=== PATIENT | female | born 1960 | race Caucasian/White ===

== ENCOUNTER → 2016-08-18 | Outpatient (CLI) | payer OTHER ==
[~2016-08-18] MED LIST: AMITIZA24 MCG PO; ASA CHILDREN'S81 MG PO; ATARAX-DPS25 MG PO; CLARITIN DPS10 MG PO; DILAUDID2 MG PO; LITHIUM CARBON150 MG PO; MELATONIN10 M2 PO; MONTELUKAST SOD10 MG PO; PHYTONADIONE PO; PRIMROSE OIL PO; PROTONIX40 MG PO; TOPAMAX15 MG PO; VITAMIN D31000 UNIT PO; [UNRECOGNIZED DRUG - OTHER] PO
== END | disposition home or self-care (01) ==
LOC: RAD.S 12:00
DX: R13.13 Dysphagia, pharyngeal phase (principal)

== ENCOUNTER 2016-08-25 09:59 | Observation (INO) | payer OTHER ==
[~2016-08-25] VITALS: Ht 157.5 cm; Wt 61.2 kg
--- NOTE | ~2016-08-25 | CST ---
Cardiac Perfusion Imaging Demographics Patient Name NATHAN Farias Gender Female Patient Number [id number] Race Visit Number [id number] Ethnicity [employer] ID Room Number 422 Accession Number [id number] Height 62 inches Date of 1960 Weight 135 pounds Age 56 year(s) BSA 1.62 m Referring Physician Juan Almazan MD BMI 24.69 kg/m Interpreting [facility] Date of study 08/26/2016 Physician Kt Baires MD Supervising MD/MLP Kt Baires MD NM Technologist Abdullahi Dickerson, [facility] Ordering Physician Juan Almazan MD Stress Shweta Soria customer data technician Stress ECG Reading [facility] Nurse Tom Hendricksony Physician Kt Baires MD The procedure was explained in detail to the patient. Risks, complications and alternative treatments were reviewed. Written consent was obtained. Medications Reviewed with Patient prior to Procedure. Procedure Procedure Type: Nuclear Stress Test:Pharmacological, Lexiscan Procedure Start time: 08/26/2016 08:00 Indications: Hyperlipidemia, Hypertension and Chest pain. Risk Factors The patient risk factors include:Current/Recent(w/in 1 year) tobacco use, treated hypercholesterolemia, treated hypertension and family history of premature CAD. Conclusions Summary Perfusion Images: The overall quality of the study is good. Left ventricular cavity is noted to be normal on the stress and rest studies. There is no evidence of abnormal lung activity. The right ventricle is not visualized and cannot be assessed. Stress SPECT images demonstrate homogenous tracer distribution throughout the myocardium. Rest SPECT images demonstrate homogenous tracer distribution throughout the myocardium. Gated SPECT imaging reveals normal myocardial thickening and wall motion. The left ventricular ejection fraction was calculated to be 76%. Impression ECG portion of stress test is clinically negative for ischemia by diagnostic criteria. Myocardial perfusion imaging is normal. Overall left ventricular systolic function was normal without regional wall motion abnormalities. There are no previous studies for comparison. Stress Protocols Resting ECG Normal sinus rhythm. Resting HR:60 bpm Resting BP:98/72 mmHg Stress Protocol:Pharmacologic Predicted HR: 162 bpm Test duration: 06:00 min ECG Findings No ECG changes suggestive of ischemia. Arrhythmias No rhythm abnormality. Symptoms Shortness of breath. Chest pressure 2/10 at 2 minutes post infusion Complications Procedure complication: None. Stress Interpretation Appropriate hemodynamic response to Lexiscan. No significant ST-T wave changes with Lexiscan. ECG portion is negative for ischemia by diagnostic criteria. Imaging Results Summed scores - Summed stress score: 0 - Summed rest score: 0 - Summed difference score: 0 Stress ejection Ejection fraction:75 % EDV :73 ml ESV :18 ml Stroke volume :55 ml LV mass :107 gr Imaging Protocols Rest Stress Isotope:Tc99m Myoview IV Isotope: Tc99m Myoview IV Isotope dose:10.5 mCi Isotope dose:30.5 mCi Date:08/26/2016 06:45 Date:08/26/2016 08:00 Technique: SPECT Technique: Gated Supine SPECT Supine IV remains in place after procedure. Scan Time:30 minutes post injection Scan Time:15-30 minutes post injection Procedure Medications - Regadenoson (Lexiscan) 0.4 mg IV over 10-15 sec. I.V. 0.4 mg. Medications administered per verbal order and read back to physician prior to administration. Medical History Admission Data Admission date: 08/25/2016 Admission Time: 12:00 Hospital Status: Inpatient. Signatures
[~2016-08-25 09:59] MED LIST changes: -AMITIZA24 MCG PO; -LITHIUM CARBON150 MG PO; -PROTONIX40 MG PO
--- NOTE | 2016-08-26 08:23 | HP ---
ADMIT: 08/25/2016 RM/LOC: 422 [facility] MR#: [id number] [address] [address] LUPE EVANS [address] [place] [address] History and Physical SEX: F AGE: 56 : 1960 DATE OF SERVICE: CHIEF COMPLAINT: Chest pain. HISTORY OF PRESENT ILLNESS: The patient is a 56-year-old female, who presented to the emergency room after being first evaluated at Neurosurgery office for routine appointment. Has chest pain, substernal, radiating up to her left jaw and neck starting last night. The patient has not had any pain similar recently, has otherwise been active, but somewhat limited by some left hip pain following a cervical neck surgery. The patient reports that she has no shortness of breath. No nausea or vomiting. Had felt a little bit of confusion yesterday when conversing with family via text. Otherwise, had been in her usual state of health taking her medications as prescribed other than occasionally missing some Topamax dosages. Struggle with some headaches occasionally. PAST MEDICAL HISTORY: 1. Bipolar disorder. 2. Hyperlipidemia. 3. Hypertension. 4. History of cervical spinal stenosis, status post surgery. 5. Anxiety. 6. Chronic headaches. MEDICATIONS: She is on: 1. Alprazolam. 2. Vitamin D3. 3. Gabapentin. 4. Dilaudid p.r.n. 5. Loratadine. 6. Amitiza. 7. Montelukast. 8. Topamax. 9. Aspirin 81 mg a day. Please see list for full details. FAMILY HISTORY: Her father of heart disease at age 61. Her multiple uncles and aunts have of heart disease at early age in their 40s. SOCIAL HISTORY: Smoking. Lives at home with her son. REVIEW OF SYSTEMS: As per HPI. Otherwise, fully reviewed and negative. PHYSICAL EXAMINATION: VITAL SIGNS: Blood pressure 108/60, pulse 80, respiratory rate 17, O2 saturation 96% on room air. GENERAL: She is alert and oriented x3. In no acute distress. Pleasant as always. HEENT: Normocephalic, atraumatic. Pupils are equal, round, and reactive to light and accommodation. Extraocular muscles intact. Moist mucous membranes. ADMIT: 08/25/2016 RM/LOC: 422 [facility] MR#: [id number] [address] [address] LUPE EVANS K [address] [place] [address] History and Physical SEX: F AGE: 56 : 1960 NECK: No lymphadenopathy. Soft, supple. Trachea midline. LUNGS: Clear to auscultation bilaterally. No wheezes, rales, or rhonchi. HEART: Regular rate and rhythm. No murmurs, rubs, or gallops. ABDOMEN: Soft, nontender, nondistended. Bowel sounds present. EXTREMITIES: No cyanosis, clubbing, or edema. MUSCULOSKELETAL: Has 5/5 strength in all four extremities. NEUROLOGICAL: No focal deficits noted. Cranial nerves II through XII grossly intact. LABORATORY AND X-RAY DATA: Her CK-MB is slightly elevated at 4.7, CK is 239. Mag is 2.4. Troponin is negative. Hemoglobin 15.3. Potassium 3.9, creatinine 1.0. EKG is reviewed. I do not see any acute findings. Sinus rhythm. Chest x-ray is negative. ASSESSMENT: 1. Chest pain. 2. Hypertension. 3. Hyperlipidemia. 4. Bipolar disorder. 5. Chronic headaches. PLAN: At this point in time, for her chest pain, we will trend her out with her cardiac enzymes. Her MB is slightly positive. Concerning symptoms of her pain radiating to her left jaw. She does have a history of a catheterization in May, and has a report of that, the ER has obtained. Shows a normal LV with normal systolic function, mild CAD with maximal focal stenosis, 20% to 30%, involving the PDA, branch of RCA. Otherwise, no other acute findings there at that time. Plan is we will evaluate her overnight with serial cardiac enzymes. Plan on tentatively stress test in the morning if everything looks okay. The patient is agreeable with plan. Keshav Martinez MD/ ramon JOB #: [id number] CC: Keshav Martinez, Attending Physician Keshav Martinez, Family Physician
--- NOTE | 2016-08-27 10:58 | DS ---
ADMIT: 08/25/2016 RM/LOC: 422 [facility] MR#: [id number] [address] [address] LUPE EVANS [address] [place] [address] Discharge Summary SEX: F AGE: 56 : 1960 ADMISSION DATE: 08/25/2016 DISCHARGE DATE: 08/26/2016 CONSULTATIONS: None. FINAL DIAGNOSES: 1. Chest pain with a negative cardiac stress test during hospitalization. 2. Hypertension. 3. Bipolar disorder. 4. Chronic neck pain from neck fusion. 5. Migraines. 6. Chronic constipation. REASON FOR ADMISSION: The patient is a 56-year-old female with chest pain radiating to her left neck and jaw, concerning for angina. Strong family history. Admitted for further stabilization, monitoring and ultimately had the above-mentioned stress test. HOSPITAL COURSE: The patient was admitted. Cardiac enzymes remained negative. Stress test negative. She had improvement of her pain. We will discharge her on PPI with close followup in the clinic in 2-4 weeks. Please see discharge med list which I reviewed. Keshav Martinez MD/ vdg JOB #: [id number] CC: Keshav Martinez MD, Attending Physician Keshav Martinez MD, Family Physician
[2016-08-27] MEDS ORDERED: LITHIUM CARBON150 MG PO (13:21)
[2016-08-27] MEDS ORDERED: AMITIZA24 MCG PO (13:23)
[2016-08-27] MEDS ORDERED: PROTONIX40 MG PO (13:24)
--- NOTE | 2016-09-12 08:09 | ER ---
ADMIT: 08/25/2016 RM/LOC: ER [facility] MR#: [id number] [address] [facility] [id number] [place], [place] [address] LUPE EVANS [address] [place] [address] Emergency Room Report SEX: F AGE: 56 : 1960 DATE: 08/25/2016 ADDENDUM: This 56-year-old white female coming with chest pain, radiated between her neck and left arm. First nitroglycerin helped, second may be not so much. EKG, chest x-ray, CBC, chemistry, and troponin negative. Put an inch of paste on her. Anyway, I spoke to Dr. Martinez, who will admit, rule out. CONDITION ADMISSION: Fair. Reg Arnold MD/ ramon JOB #: [id number] CC: Reg Arnold MD, Attending Physician Keshav Martinez MD, Family Physician
== END 2016-08-26 13:43 | disposition home or self-care (01) ==
LOC: ER 09:59 → 4PCU 12:00
PROVIDERS: ADMIT Internal Medicine
DX: R07.9 Chest pain, unspecified (principal); I10 Essential (primary) hypertension; F31.9 Bipolar disorder, unspecified; G89.29 Other chronic pain; Z98.1 Arthrodesis status; G43.909 Migraine, unspecified, not intractable, without status migrainosus; K59.09 Other constipation; F41.9 Anxiety disorder, unspecified; F17.210 Nicotine dependence, cigarettes, uncomplicated; Z79.899 Other long term (current) drug therapy; Z79.82 Long term (current) use of aspirin; Z88.0 Allergy status to penicillin; Z88.6 Allergy status to analgesic agent; Z91.040 Latex allergy status

== ENCOUNTER → 2016-10-07 | Outpatient (CLI) | payer OTHER ==
[~2016-10-07] MED LIST changes: +AMITIZA24 MCG PO; +LITHIUM CARBON150 MG PO; +PROTONIX40 MG PO
== END | disposition home or self-care (01) ==
LOC: RAD.S 12:41
DX: Z12.31 Encounter for screening mammogram for malignant neoplasm of breast (principal)